=== PATIENT | male | born 1960 | race Caucasian/White ===

== ENCOUNTER 2022-04-07 14:39 | Observation (INO) ==
[2022-04-08] MEDS ORDERED: *HR* OxyCODONE Immed Rel 5 MG TABLET PO PRN (00:35)
[2022-04-08] MEDS ORDERED: *HR* HYDROcodone/Acet 5/325 mg TABLET PO PRN (00:35)
[2022-04-08] MEDS ORDERED: Acetaminophen 325 MG TABLET PO PRN (00:35)
[2022-04-08] MEDS ORDERED: Naloxone 0.4 MG/ML INJ IVP PRN (00:35)
[2022-04-08] MEDS ORDERED: Ondansetron 4 MG/2 ML VIAL IVP PRN (00:35)
[2022-04-08] MEDS: Ringers Solution, Lactated 1,000 ML IVC SCH ×2 (01:54→09:54)
[2022-04-08] MEDS: Pantoprazole 40 MG VIAL IVP SCH ×2 (04:52→17:11)
[2022-04-08 05:57] LABS: Basophils # 0.1 K/mcL (0.0-0.2); Eosinophils # 0.2 K/mcL (0.0-0.6); Eosinophils % 4.2 %; Hematocrit 22.7 % (37.5-50.1); Hemoglobin 7.5 g/dL (12.9-16.9); Immature Granulocytes % 0.5 % (0-4); Lymphocytes # 1.2 K/mcL (0.6-4.6); Lymphocytes % 20.1 %; Mean Corpuscular Hemoglobin 30.6 pg (28.0-33.3); Mean Corpuscular Volume 92.7 fL (83.0-100.0); Mean Platelet Volume 9.2 fL (9.4-12.4); Monocytes # 0.5 K/mcL (0.0-1.3); Monocytes % 8.7 %; Neutrophils # 3.7 K/mcL (1.6-8.9); Nucleated Red Blood Cells 0.7 /100 WBC (0); Platelet Count 205 K/mcL (140-400); Red Blood Count 2.45 M/mcL (4.19-5.50); Red Cell Distribution Width 13.8 % (11.5-14.5); Segmented Neutrophils % 65.5 %; White Blood Count 5.7 K/mcL (4.3-11.1)
[2022-04-08 06:27] LABS: INR 1.1; Prothrombin Time 12.6 Seconds (9.4-12.1)
[2022-04-08 06:55] LABS: BUN/Creatinine Ratio 21 (6-26); Blood Urea Nitrogen 22 mg/dL (8-23); Calcium 8.3 mg/dL (8.6-10.3); Carbon Dioxide 28 mEq/L (23-29); Chloride 106 mEq/L (98-107); Glucose 99 mg/dL (70-105); Magnesium 1.9 mg/dL (1.6-2.6); Osmolality,Calculated 293 (280-300); Potassium 4.4 mEq/L (3.5-5.1); Sodium 140 mEq/L (136-145); eGFR For African Americans > 60 (> 60); eGFR For Non-African Americans > 60 (> 60)
[2022-04-08 06:57] LABS: Albumin 3.6 g/dL (3.5-5.7); Albumin/Globulin Ratio 1.5 (1.1-2.2); Bilirubin,Indirect 0.3 mg/dL (0.0-1.0); Bilirubin,Total 0.3 mg/dL (0.3-1.0); Globulin 2.4 g/dL (2.4-3.5)
[2022-04-08 11:02] LABS: Adenovirus F 40/41 PCR Not detected (Not detect); Astrovirus PCR Not detected (Not detect); Campylobacter by PCR Not detected (Not detect); Cryptosporidium by PCR Not detected (Not detect); Cyclospora cayetanensis PCR Not detected (Not detect); Entamoeba histolytica PCR Not detected (Not detect); Enteroaggregative E.coli(EAEC) Not detected (Not detect); Enteropathogenic E.coli(EPEC) DETECTED (Not detect); Enterotoxigenic E.coli (ETEC) Not detected (Not detect); Giardia lamblia PCR Not detected (Not detect); Norovirus GI/GII PCR Not detected (Not detect); Plesiomonas shigelloides PCR Not detected (Not detect); Rotavirus A PCR Not detected (Not detect); Salmonella PCR Not detected (Not detect); Sapovirus PCR Not detected (Not detect); Shig/EnteroinvasiveE coli EIEC Not detected (Not detect); Shigalike tox-prod E coli STEC Not detected (Not detect); Vibrio PCR Not detected (Not detect); Vibrio cholerae PCR Not detected (Not detect); Yersinia enterocolitica PCR Not detected (Not detect)
[2022-04-08 11:04] LABS: C.difficile Toxin A/B Gene PCR DETECTED (Not detect)
[2022-04-08 12:29] LABS: Hematocrit 21.4 % (37.5-50.1); Hemoglobin 7.3 g/dL (12.9-16.9)
[2022-04-08] MEDS: Vancomycin Oral Soln 125 MG/2.5 ML UDC PO SCH ×3 (13:40→21:36)
[2022-04-08 21:13] LABS: Hematocrit 22.2 % (37.5-50.1); Hemoglobin 7.3 g/dL (12.9-16.9)
[2022-04-08] MEDS: Lactobacillus 1 EACH CAP.SPRINK PO SCH (21:35)
[2022-04-09] MEDS: Melatonin 3 MG TABLET PO PRN ×2 (00:02→20:54)
[2022-04-09 02:42] LABS: Alanine Aminotransferase 15 Units/L (7-52); Albumin 3.9 g/dL (3.5-5.7); Albumin/Globulin Ratio 1.5 (1.1-2.2); Alkaline Phosphatase 50 Units/L (34-104); Aspartate Amino Transferase 20 Units/L (13-39); BUN/Creatinine Ratio 13 (6-26); Bilirubin,Total 0.4 mg/dL (0.3-1.0); Blood Urea Nitrogen 14 mg/dL (8-23); Calcium 8.9 mg/dL (8.6-10.3); Carbon Dioxide 25 mEq/L (23-29); Chloride 105 mEq/L (98-107); Globulin 2.6 g/dL (2.4-3.5); Glucose 105 mg/dL (70-105); Osmolality,Calculated 283 (280-300); Potassium 3.9 mEq/L (3.5-5.1); Sodium 136 mEq/L (136-145); Total Protein 6.5 g/dL (6.4-8.9); eGFR For African Americans > 60 (> 60); eGFR For Non-African Americans > 60 (> 60)
[2022-04-09] MEDS: Pantoprazole 40 MG VIAL IVP SCH ×2 (06:21→17:36)
[2022-04-09] MEDS: Vancomycin Oral Soln 125 MG/2.5 ML UDC PO SCH ×4 (09:18→20:55)
[2022-04-09] MEDS: Lactobacillus 1 EACH CAP.SPRINK PO SCH ×2 (09:20→20:54)
[2022-04-09 12:55] LABS: Hematocrit 23.6 % (37.5-50.1); Hemoglobin 7.8 g/dL (12.9-16.9)
[2022-04-09 20:21] LABS: Hematocrit 23.9 % (37.5-50.1); Hemoglobin 7.8 g/dL (12.9-16.9)
[2022-04-10 05:07] LABS: BUN/Creatinine Ratio 13 (6-26); Blood Urea Nitrogen 15 mg/dL (8-23); Calcium 8.7 mg/dL (8.6-10.3); Carbon Dioxide 28 mEq/L (23-29); Chloride 103 mEq/L (98-107); Glucose 106 mg/dL (70-105); Osmolality,Calculated 283 (280-300); Potassium 3.9 mEq/L (3.5-5.1); Sodium 136 mEq/L (136-145); eGFR For African Americans > 60 (> 60); eGFR For Non-African Americans > 60 (> 60)
[2022-04-10] MEDS: Pantoprazole 40 MG VIAL IVP SCH ×2 (05:55→17:20)
[2022-04-10 06:34] LABS: Hematocrit 22.8 % (37.5-50.1); Hemoglobin 7.4 g/dL (12.9-16.9); Mean Corpuscular HGB Conc 32.5 g/dL (31.6-35.5); Mean Corpuscular Hemoglobin 30.2 pg (28.0-33.3); Mean Corpuscular Volume 93.1 fL (83.0-100.0); Mean Platelet Volume 8.8 fL (9.4-12.4); Platelet Count 227 K/mcL (140-400); Red Blood Count 2.45 M/mcL (4.19-5.50); Red Cell Distribution Width 14.3 % (11.5-14.5); White Blood Count 5.9 K/mcL (4.3-11.1)
[2022-04-10] MEDS: Lactobacillus 1 EACH CAP.SPRINK PO SCH ×2 (09:08→21:09)
[2022-04-10] MEDS: amLODIPine 5 MG TABLET PO SCH (09:08)
[2022-04-10] MEDS: Vancomycin Oral Soln 125 MG/2.5 ML UDC PO SCH ×4 (09:08→21:09)
[2022-04-11 01:48] LABS: Hematocrit 23.8 % (37.5-50.1); Hemoglobin 7.7 g/dL (12.9-16.9)
[2022-04-11] MEDS: Pantoprazole 40 MG VIAL IVP SCH (06:18)
[2022-04-11] MEDS: Lactobacillus 1 EACH CAP.SPRINK PO SCH (08:44)
[2022-04-11] MEDS: amLODIPine 5 MG TABLET PO SCH (08:45)
[2022-04-11] MEDS: Vancomycin Oral Soln 125 MG/2.5 ML UDC PO SCH (08:45)
[2022-04-11 10:27] VITALS: BP 118/75; PULSE 99; TEMP 98.2; O2SAT 98
== END 2022-04-11 11:09 | disposition home or self-care (01) ==
LOC: 3ANU → SUATTDRO 23:39
PROVIDERS: ADMIT Internal Medicine; ATTEND Internal Medicine